=== PATIENT | female | born 1940 | race Caucasian/White ===

== ENCOUNTER 2017-02-04 10:55 | Observation (INO) | payer BC ==
--- NOTE | ~2017-02-04 | DS ---
Discharge Summary [facility] [address] [place]. [address] NAME: JIMENEZ DYKES : 38 STATUS : DIS Matteo PAT#: [id number] AGE: 76 ADM/REG DATE : 02/04/17 MR#: [id number] REPORT SERV DATE: 02/12/17 DICTATED BY: KEATON ANGELO DATE: 02/11/17 REPORT STATUS : Draft TRANSCRIBED BY: AXEL DATE: 02/11/17 Data Collection from hospitalization DISCHARGE DIAGNOSES: 1. Acute intractable low back pain. 2. Severe degenerative disk disease at L1-2/L2-3. 3. Osteoarthritis. 4. Hypercholesterolemia. 5. Chronic bronchitis. CONSULTATIONS: None. PROCEDURES PERFORMED: MRI of the lumbar spine without contrast on 02/04/2017. MEDICATIONS: FiberCon two tablets twice a day, Citracal 315 mg twice a day, Benadryl 50 mg twice a day, Colace 200 mg twice a day, Nexium 40 mg at bedtime, Fenesin IR 600 mg twice a day, [place] 10/325 one tablet every eight hours as needed, Xalatan one drop at bedtime in both eyes, Robaxin 500 mg every eight hours, Medrol one package as directed, probiotic one capsule every morning, Nasonex two sprays nasally daily as needed, red yeast two capsules every morning, Endocet 10/325 one tablet every six hours as needed, Mirapex 0.5 mg at bedtime, Zantac 150 mg at bedtime, Crestor 20 mg every morning, Omegared one capsule every morning, and Ambien 5 mg at bedtime as needed. She was instructed not to continue aspirin. CONDITION AT DISCHARGE: Stable. DISPOSITION: The patient was discharged home on a regular diet with activities as instructed. She would follow up with Dr. Gunjan Carlson two weeks following discharge. HOSPITAL COURSE: This is a 76-year-old female who I had known for a long time. She presented to the office and was having totally intractable back pain that had begun a few days prior to this admission. She has no history of fall or injury. She has had a history of previous L2 to sacrum fusion many years ago and she has been very well, but had recently developed some intermittent low back pain which she had tolerated quite well. She had used hydrocodone intermittently, but not on a routine daily basis, but after this recent acute flare up, the pain became so intractable that she could not function. She has been on the walker for several days. When she presented to the office, she was in a wheelchair and we could not get her to stand or get her on the exam table. She was also encumbered by the fact that her is quite ill and does not have the ability to really help her or assist her at all. She had no obvious neurologic deficit. Plain x-rays revealed small endplate deformity of L1, which could have some appearance of a fracture, but she has no history of a fall. Because she had such intractable pain and because there was a potential for possible occult L1 compression fracture, she was admitted to the hospital at this time for further evaluation and treatment. Upon admission, IV pain control was started. An MRI was requested. MRI of the lumbar spine without contrast was performed. The following day, she was evaluated by Physical Therapy. Her MRI had shown severe degenerative disk disease with retrolisthesis at L1-2 and L2-3. Over the next couple of days, she began to do better. She was ambulating some. Her pain Discharge Summary [address] [place]. [address] NAME: JIMENEZ DYKES : 38 STATUS : DIS Matteo PAT#: [id number] AGE: 76 ADM/REG DATE : 02/04/17 MR#: [id number] REPORT SERV DATE: 02/12/17 DICTATED BY: KEATON ANGELO DATE: 02/11/17 REPORT STATUS : Draft TRANSCRIBED BY: MODL DATE: 02/11/17 was controlled. Discharge planning was performed. On 02/07/2017, she seemed to be much better. She was transferring okay. She could ambulate in the ramos. Her acute low back pain had resolved. Discharge instructions were given. Due to her improved and stable condition, she was discharged home with the above-stated instructions. Information collected by: Haven Dangelo I submit the above information as my discharge summary. JULES/AXEL Keaton Angelo D.O. / [id number] CC: vEi Naik M.D.
--- NOTE | ~2017-02-04 | PREOPHP ---
PreOp History and Physical [facility] [address] [place]. [address] NAME: JIMENEZ DYKES : 38 STATUS : ADM Matteo PAT#: [id number] AGE: 76 ADM/REG DATE : 02/04/17 MR#: [id number] REPORT SERV DATE: 02/05/17 DICTATED BY: KEATON ANGELO DATE: 02/05/17 REPORT STATUS : Draft TRANSCRIBED BY: MODCeline DATE: 02/05/17 CHIEF COMPLAINT: Intractable back pain and groin pain. HISTORY OF PRESENT ILLNESS: This is a 76-year-old female patient I have known for a long time, who presented to the office just afternoon, was having totally intractable back pain that had onsetted just a few days before. She had no history of fall or injury. She has had a history of a previous L2 to sacrum fusion many years ago and she has done very well, but has recently developed some intermittent low back pain, which she has tolerated quite well. She has used hydrocodone intermittently, but not on a routine daily basis, but after this recent acute flare-up, the pain became so intractable that she just could not function. The patient has been on a walker for several days. When she presented to the office, she was in a wheelchair and I could not get her to stand or get her on an exam table. She is also cumbered by the fact that her is also quite ill and does not have the ability to really help her or assist her at all. The patient had no obvious neurologic deficit. When I reviewed the plain x-rays, there was a small endplate deformity of L1, which could have some appearance of a fracture, but she had no history of fall. Because she was having such intractable pain and because there is a potential for a possible occult L1 compression fracture, I felt she deserved admission for IV pain control and to be able to obtain an MRI. The patient has had no alteration of bowel and bladder function. She has had no fever, chills, night sweats, etc. She is also having no abdominal pain. There have been no other systemic issues that would account for any of the severe pain that she is describing. PAST MEDICAL HISTORY: Included osteoarthritis. She has hypercholesterolemia and chronic bronchitis. PAST SURGICAL HISTORY: Included cataract extraction, intraoperative implants. She has had a left total knee arthroplasty, cholecystectomy, appendectomy, right retinal detachment repair, and multiple colonoscopies. CURRENT MEDICATIONS: Include Neurontin, hydrocodone, Nexium, Xalatan ophthalmic drops, Nasacort, fenofibrate, calcium, multiple vitamins, folic acid, Mucinex, vitamin C, Colace, Nai, and multiple [id number] medications such as red yeast, CoQ10, cinnamon, fish oil, vitamin E, Tums, Benadryl, sleep aid. ALLERGIES: LIST IS RATHER LONG. SHE IS ALLERGIC TO AMOXICILLIN, CEPHALOSPORINS, DIAZEPAM, MORPHINE, EPHEDRINE, ERYTHROMYCIN, CLINDAMYCIN, FENTANYL, METOCLOPRAMIDE, AND LYRICA. SOCIAL HISTORY: She is . Retired. Does not use any tobacco or alcohol. FAMILY HISTORY: Noncontributory. REVIEW OF SYSTEMS: She wears corrective lenses. Has a history of glaucoma. Also has some neuropathy symptoms. PHYSICAL EXAMINATION: VITAL SIGNS: She is 5 feet 6 inches, 194 pounds. PreOp History and Physical [address] [address] NAME: JIMENEZ DYKES : 38 STATUS : ADM Matteo PAT#: [id number] AGE: 76 ADM/REG DATE : 02/04/17 MR#: [id number] REPORT SERV DATE: 02/05/17 DICTATED BY: KEATON ANGELO DATE: 02/05/17 REPORT STATUS : Draft TRANSCRIBED BY: AXEL DATE: 02/05/17 GENERAL: She was alert, cooperative, well oriented. She did appear in acute painful distress. HEENT: Grossly normal. LUNGS: Clear to auscultation. HEART: Rate is regular and rhythmic. ABDOMEN: Soft with good bowel sounds. No peritoneal signs were noted. MUSCULOSKELETAL: The spine itself had some significant pain with percussion over the thoracolumbar junction in the midline. There was no paraspinous muscle tenderness. There was a mild degree of spasm. Sitting in a wheelchair, I could get her to flex her hip and extend her knee, flex her knee, extend the ankle, and flex the ankle against resistance. These all seemed to be 5/5 strength. Patella and Achilles reflexes were both absent. There was no sensory deficit. Toes were downgoing. No ankle clonus was found. Orthopedically, she had no pain with log rolling of the hip, movement of the knees or ankles. There were pulses in all four extremities. No abnormal skin lesions were found. ASSESSMENT: Acute intractable low back pain, possible occult L1 compression fracture. RECOMMENDATION: Admission for IV pain control and MRI. Further recommendations to follow. SCARLETT/AXEL Keaton Angelo D.O. / [id number] CC: Evi Naik M.D.
[~2017-02-04 10:55] MED LIST: ALLEGRA180 PO; BAYER500 MG PO; BEN25 PO; CINNAMON PO; COQ-1010 MG PO; DSS PO; FISH OIL1200 MG PO; FOLIC PO; LEG CRAMPS PM PO; LOFIB160 PO; LORCET PO; LUTEIN1 CAP PO; MAG-SR535 MG PO; MUCINEX600 MG PO; MULTIPLE VIT PO; NASOCORT INH; NATURL FIBER68 % PO; NEUR100 PO; NEXIUM40 PO; OS500+D PO; OSTEOBIFLEX PO; POT GLUCONAT550 M1 PO; PROBIOTIC PO; RED YEAS1 PO; SLEEP MD PO; TUMSROLL PO; VITAMIN C100 M1 PO; VITE PO; XALAT OPH
[2017-02-04 12:16] LABS: BASOPHILS 0.2 %; BASOPHILS ABSOLUTE 0.02 10/3/uL (0.0-0.16); EOSINOPHILS 0.9 %; EOSINOPHILS ABSOLUTE 0.11 10/3/uL (0.0-0.53); HEMOGLOBIN 12.9 g/dL (12.0-16.0); IMMATURE GRANULOCYTES 0.3 %; IMMATURE GRANULOCYTES ABSOLUTE 0.04 10/3/uL (0.0-0.11); LYMPHOCYTES 23.7 %; LYMPHOCYTES ABSOLUTE 2.78 10/3/uL (0.67-4.30); MANUAL DIFF NO %; MEAN CORPUS HGB CONC 32.3 g/dL (32.0-36.0); MEAN CORPUSCULAR HEMOGLOB 27.2 pg (26.0-34.0); MEAN CORPUSCULAR VOLUME 84.4 fL (80-100); MEAN PLATELET VOLUME 10.6 fL (9.2-13.0); MONOCYTES 10.5 %; MONOCYTES ABSOLUTE 1.23 10/3/uL (0.21-1.20); NEUTROPHILS 64.4 %; NEUTROPHILS ABSOLUTE 7.53 10/3/uL (2.02-8.40); PLATELET COUNT 332 10/3/uL (150-400); RBC DISTRIBUTION WIDTH 15.7 % (12.0-16.0); RED CELL COUNT 4.74 10/6/uL (4.0-5.6); WHITE BLOOD CELLS 11.7 10/3/uL (4.5-10.5)
[2017-02-04 12:22] LABS: INTERNATIONAL NORMAL RATI 1.1 UNITS (-)
[2017-02-04 12:29] LABS: BUN (BLOOD UREA NITROGEN) 19 MG/DL (6-23); CALCIUM, SERUM 9.1 MG/DL (8.5-10.4); CHLORIDE, SERUM 103 MMOL/L (96-112); CO2 (CARBON DIOXIDE) 26 MMOL/L (24-34); CREATININE 0.85 MG/DL (0.55-1.02); GFR AFRICAN AMERICAN 77 ML/MIN (>=60); GFR NON AFRICAN AMERICAN 66 ML/MIN (>=60); GLUCOSE, SERUM 106 MG/DL (60-99); POTASSIUM, SERUM 3.8 MMOL/L (3.5-5.3); SODIUM, SERUM 143 MMOL/L (135-148)
[2017-02-04 15:59] LABS: ASCORBIC ACID (UR NOT ORDER) NEG (NEG); BILIRUBIN, URINE NEGATIVE (NEG); KETONE, URINE NEGATIVE (NEG); LEUKOCYTE ESTERASE(NOT OR SMALL (NEG); WBC (NOT ORDERED) (RFLEX) 4 (0-5)
[2017-02-05] MEDS ORDERED: CRESTOR20 MG PO (17:24)
[2017-02-05] MEDS ORDERED: NEXIUM40 PO (17:25)
[2017-02-05] MEDS ORDERED: DSS PO (17:26)
[2017-02-05] MEDS ORDERED: BEN25 PO (17:26)
[2017-02-05] MEDS ORDERED: FIBERCON PO (17:26)
[2017-02-05] MEDS ORDERED: ZANTAC 150 PO (17:26)
[2017-02-05] MEDS ORDERED: FENESIN IR400 MG PO (17:27)
[2017-02-05] MEDS ORDERED: RED YEAS1 PO (17:28)
[2017-02-05] MEDS ORDERED: CITRACAL PO (17:28)
[2017-02-05] MEDS ORDERED: CINNAMONPO PO (17:29)
[2017-02-05] MEDS ORDERED: OMEGA RED PO (17:29)
[2017-02-05] MEDS ORDERED: PROBIOTIC PO (17:30)
[2017-02-05] MEDS ORDERED: MEDROLPAK4 PO (17:31)
[2017-02-05] MEDS ORDERED: ENDOCET1 TA3 PO (17:32)
[2017-02-05] MEDS ORDERED: XALAT OPH (17:33)
[2017-02-05] MEDS ORDERED: MIRAPEX5 PO (17:34)
[2017-02-05] MEDS ORDERED: AMB5 PO (17:39)
[2017-02-05] MEDS ORDERED: BAYER500 MG PO (17:41)
[2017-02-05] MEDS ORDERED: NASONEX NAS (17:44)
[2017-02-05] MEDS ORDERED: CENTRUM PO (17:45)
[2017-02-07] MEDS ORDERED: NORCO1 TAB PO (11:48)
[2017-02-07] MEDS ORDERED: METHOC500B PO (11:48)
== END 2017-02-07 12:43 | disposition home or self-care (01) ==
LOC: 3SO 10:55
PROVIDERS: Orthopaedic Surgery Orthopaedic Surgery of the Spine
DX: M51.36 Other intervertebral disc degeneration, lumbar region (principal); M19.90 Unspecified osteoarthritis, unspecified site; E78.00 Pure hypercholesterolemia, unspecified; J42 Unspecified chronic bronchitis; Z98.49 Cataract extraction status, unspecified eye; Z96.1 Presence of intraocular lens; Z96.652 Presence of left artificial knee joint; Z90.49 Acquired absence of other specified parts of digestive tract; Z98.890 Other specified postprocedural states; Z88.0 Allergy status to penicillin; Z88.1 Allergy status to other antibiotic agents; Z88.4 Allergy status to anesthetic agent; Z88.5 Allergy status to narcotic agent; Z88.8 Allergy status to other drugs, medicaments and biological substances; Z79.82 Long term (current) use of aspirin; Z79.899 Other long term (current) drug therapy; Z98.1 Arthrodesis status
CPT/HCPCS: 71010; 72148; 80048; 81001; 85025; 85610; 87086; 93005; 96374; 96375; 96376; 97116-GP; 97161-GP; A9270-GY; G0378; J2405; J2930